=== PATIENT | male | born 1975 | race Caucasian/White ===

== ENCOUNTER 2024-10-19 07:12 | Emergency (ER) | payer SELFPAY ==
[~2024-10-19] VITALS: Ht 170.2 cm; Wt 79.0 kg
[2024-10-19 07:21] VITALS: O2SAT 98
[2024-10-19 09:30] VITALS: BP 112/76; PULSE 67; RESP 18; TEMP 36.6; O2SAT 99
== END 2024-10-19 09:40 ==
LOC: ER 07:38
DX: F15.90 Other stimulant use, unspecified, uncomplicated (principal); Z02.89 Encounter for other administrative examinations
CPT/HCPCS: 99283; Z7610